=== PATIENT | female | born 1990 | race Caucasian/White ===

== ENCOUNTER 2022-10-16 08:57 | Emergency (ER) | payer OTHER ==
[~2022-10-16] VITALS: Ht 149.9 cm; Wt 93.0 kg
[~2022-10-16 08:57] MED LIST: PEPCID40 MG
[2022-10-16] MEDS ORDERED: AMOX1TAB5 PO (11:22)
[2022-10-16] MEDS ORDERED: TUSICOF CAPLET1 EACH PO (11:22)
== END 2022-10-16 11:29 | disposition home or self-care (01) ==
LOC: ER 08:57
DX: J03.80 Acute tonsillitis due to other specified organisms (principal); Z20.822 Contact with and (suspected) exposure to COVID-19

== ENCOUNTER 2023-07-31 08:09 | Emergency (ER) | payer OTHER ==
[~2023-07-31] VITALS: Ht 149.9 cm; Wt 89.8 kg
[~2023-07-31 08:09] MED LIST changes: +AMOX1TAB5 PO; +TUSICOF CAPLET1 EACH PO
== END 2023-07-31 14:42 | disposition left against medical advice (07) ==
LOC: ER 08:09
DX: Z53.21 Procedure and treatment not carried out due to patient leaving prior to being seen by health care provider (principal)

== ENCOUNTER 2023-11-23 09:53 | Emergency (ER) | payer OTHER ==
[~2023-11-23] VITALS: Ht 149.9 cm; Wt 81.6 kg
== END 2023-11-23 14:34 | disposition home or self-care (01) ==
LOC: ER 09:54
DX: U07.1 COVID-19 (principal)

== ENCOUNTER 2025-02-03 15:55 | Emergency (ER) | payer OTHER ==
[~2025-02-03] VITALS: Ht 149.9 cm; Wt 89.8 kg
[2025-02-03] MEDS ORDERED: PROTONIX20 MG PO (16:01)
[2025-02-03] MEDS ORDERED: FAMOtidine 10 MG/ML (4ML VIAL) IV ONE (17:00)
[2025-02-03] MEDS ORDERED: ACETAMINOPHEN 500 MG GEL..CAP PO ONE (17:00)
[2025-02-03 17:41] LABS: BASO % 0.2 % (0.1-1.2); EOS # 0.03 (0.04-0.54); EOS % 0.2 % (0.7-7.0); HEMATOCRIT 38.1 % (34.1-44.9); LYMPH # 0.67 (1.18-3.74); LYMPH % 4.5 % (19.3-53.1); MONO # 0.73 (0.24-0.82); MONO % 4.9 % (4.7-12.5); NEUT % 89.9 % (34.0-71.1); PLATELET COUNT 289 K/uL (163-369); RED BLOOD COUNT 4.49 M/uL (3.93-5.22); RED CELL DISTRIBUTION WIDTH 11.9 % (11.6-14.4)
[2025-02-03 18:16] LABS: CALCIUM 8.9 mg/dL (8.5-10.1); CREATININE SERUM 0.73 mg/dL (0.55-1.02); GFR 90.21; POTASSIUM 3.93 mEq/L (3.5-5.1)
[2025-02-03 18:18] LABS: PH,URINE 5.5 (5.0-8.0); URINE APPEARANCE Clear; URINE BILIRRUBIN Negative (NEGATIVE); URINE BLOOD Negative; URINE COLOR Yellow; URINE GLUCOSE Negative (NEGATIVE); URINE KETONE Trace (NEGATIVE); URINE LEUKOCYTE Large; URINE NITRATE Negative; URINE PROTEIN Negative (NEGATIVE); URINE UROBILINOGEN 0.2 E.U./dl
[2025-02-03 18:22] LABS: URINE BACTERIA 480.8 uL (0.0-1933)
[2025-02-03 18:29] LABS: COVID-19 AG NEGATIVE (NEGATIVE)
[2025-02-03 18:30] LABS: URINE CAST 0.29 uL (0.0-1.40); URINE RBC 1.7 uL (0.0-20.8)
[2025-02-03 18:35] LABS: URINE EPITHELIAL CELLS 51.9 uL (0.0-38.8); URINE WBC 328.4 uL (0.0-23.2)
[2025-02-03 18:36] LABS: INFLUENZA A AG NEGATIVE (NEGATIVE)
[2025-02-03] MEDS ORDERED: CIPROFLOXACIN IN 5 % DEXTROSE 400 MG/200 ML PIGGYBAG IV ONE (19:00)
== END 2025-02-03 21:50 | disposition home or self-care (01) ==
LOC: ER 15:55
PROVIDERS: General Practice
DX: N39.0 Urinary tract infection, site not specified (principal); K29.70 Gastritis, unspecified, without bleeding; K21.9 Gastro-esophageal reflux disease without esophagitis; Z20.822 Contact with and (suspected) exposure to COVID-19